=== PATIENT | female | born 1955 | race African-American/Black ===

== ENCOUNTER 2024-05-04 13:41 | Emergency (ER) | payer MEDICARE, MEDICAID ==
[~2024-05-04] VITALS: Ht 172.7 cm; Wt 73.0 kg
[2024-05-04 13:44] VITALS: O2SAT 98
[2024-05-04] MEDS ORDERED: DORZ10DR32 EACHEYE (14:30)
[2024-05-04] MEDS ORDERED: FURO20TA4 MT (14:30)
[2024-05-04] MEDS ORDERED: LATA2.5D14 EACHEYE (14:30)
[2024-05-04] MEDS ORDERED: RIVA20TA MT (14:30)
[2024-05-04] MEDS ORDERED: LISI20TA31 MT (14:30)
[2024-05-04 14:45] VITALS: BP 135/77; PULSE 74; RESP 17; TEMP 98.8
== END 2024-05-04 14:46 | disposition home or self-care (01) ==
LOC: ER 13:41
DX: H40.9 Unspecified glaucoma (principal); I10 Essential (primary) hypertension; Z76.0 Encounter for issue of repeat prescription
CPT/HCPCS: 99281